=== PATIENT | male | born 1990 | race Two or more races ===

== ENCOUNTER 2022-06-21 15:04 | Emergency (ER) | payer OTHER ==
[~2022-06-21] VITALS: Ht 172.7 cm; Wt 68.0 kg
[2022-06-21] MEDS ORDERED: BACDST PO (16:39)
[2022-06-21] MEDS ORDERED: CEPH500C PO (16:39)
[2022-06-21 16:41] VITALS: BP 128/79
== END 2022-06-21 16:50 | disposition home or self-care (01) ==
LOC: ER 15:04
DX: S20.364A Insect bite (nonvenomous) of middle front wall of thorax, initial encounter (principal); S50.861A Insect bite (nonvenomous) of right forearm, initial encounter; W57.XXXA Bitten or stung by nonvenomous insect and other nonvenomous arthropods, initial encounter; Y93.89 Activity, other specified; Y92.89 Other specified places as the place of occurrence of the external cause; Y99.8 Other external cause status; F17.210 Nicotine dependence, cigarettes, uncomplicated; F12.10 Cannabis abuse, uncomplicated; F15.10 Other stimulant abuse, uncomplicated